=== PATIENT | male | born 1985 | race African-American/Black ===

== ENCOUNTER 2018-10-07 20:09 | Emergency (ER) | payer OTHER ==
[2018-10-07] MEDS ORDERED: KETOROLAC TROMETHAMINE 60 MG/2 ML SDV IM ONE (23:33)
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
[2018-10-08 01:28] VITALS: BP 159/89
== END 2018-10-08 01:28 | disposition home or self-care (01) ==
LOC: ER 20:09
DX: S46.812A Strain of other muscles, fascia and tendons at shoulder and upper arm level, left arm, initial encounter (principal); M54.6 Pain in thoracic spine; M54.5 Low back pain; V49.40XA Driver injured in collision with unspecified motor vehicles in traffic accident, initial encounter
CPT/HCPCS: 99283; 96372; 71101; J1885